=== PATIENT | male | born 1980 | race Caucasian/White ===

== ENCOUNTER → 2020-08-01 10:35 | Outpatient (CLI) | payer BC, SELFPAY ==
--- NOTE | 2020-08-01 10:47 | XR_ITS ---
PROCEDURE: XR HAND RT MIN 3V CLINICAL INDICATION: RT HAND PAIN,RT HAND SWELLING COMPARISON: No exams were available for comparison FINDINGS: No fracture or dislocation. No lytic or blastic change. There is normal mineralization. The joint spaces are well-preserved. No significant degenerative/arthritic changes. No erosive changes evident. Other findings:None. IMPRESSION: No acute findings. Dictated by: Yaw Monteiro MD 08/01/2020 11:47 Yaw Monteiro MD in [place] 08/01/2020 11:47
== END ==
PROVIDERS: PCP Family Medicine; Visit Provider Nurse Practitioner Family
DX: M79.641 Pain in right hand (principal); M79.89 Other specified soft tissue disorders
CPT/HCPCS: 73130

== ENCOUNTER → 2021-10-12 16:24 | Outpatient (CLI) | payer BC, SELFPAY | PROVIDERS: Visit Provider Nurse Practitioner | DX: U07.1 COVID-19 (principal) | CPT/HCPCS: C9803; U0003; U0005 ==

== ENCOUNTER → 2021-10-17 17:35 | Outpatient (CLI) | payer BC, SELFPAY | PROVIDERS: Visit Provider Nurse Practitioner | DX: U07.1 COVID-19 (principal) | CPT/HCPCS: C9803; U0003; U0005 ==

== ENCOUNTER 2021-10-22 16:51 | Emergency (ER) | payer BC, SELFPAY ==
[2021-10-22 17:40] VITALS: BP 156/86; PULSE 86; RESP 18; TEMP 37.4; O2SAT 98; BMI 39.0
--- NOTE | 2021-10-22 17:59 | HMH.EDUTC ---
[facility] [place] Clinical Impression: Encounter for laboratory testing for COVID-19 virus Disposition: Home, Self-Care Condition on Discharge: Good Instructions: DI for COVID-19 (Suspected or Confirmed ) Additional Instructions: *Monitor Temp, Over the counter Motrin or Tylenol as directed/as needed Tylenol every 4 hours and Motrin every 6 hours (as long as your family doctor has told you that you can take it) for fever or pain. and straight to ER if unable to lower temp less than 101.0 after medication given Follow up IMMEDIATELY for new or worsening symptoms or no Noticeable improvement over the next 48-72 hours. 911 for difficulty breathing or swallowing You were tested for today for COVID19 your test result should be back in the next 24-48 hours, you may check your results on the [facility] [employer] [facility] Portal if you have trouble logging on you may call [employer] support for assistance Referrals: Henry Drake, DO [Primary Care Provider] - As needed Time of Disposition: 18:01 Medical Decision Making - Darius Inquiry Pt receiving controlled substance: No Darius was queried for this patient: No Vital Signs: 10/22/21 17:40 Temperature 99.3 F Temperature Source Oral Pulse Rate [Left] 86 Respiratory Rate 18 Blood Pressure [Right Arm] 156/86 H Blood Pressure Mean [Right Arm] 109 02 Sat by Pulse Oximetry 98 Orders (Tests/Meds): ORDERS Category Date Time Status Covid-19 Nasal PCR ([facility]) Routine Lab 10/22/21 17:44 Received [facility] [place] HPI - General Stated complaint: covid test Time Seen by Provider: 10/22/21 17:59 Mode of Arrival: Ambulatory Source of Information: Patient Limitations: No Limitations Description of Symptoms (Recalled from Triage Doc. by RN): COVID TEST. TESTED POSITIVE 10 DAYS AGO AND FIVE DAYS AGO. HEENT Symptoms (Recalled from RN notes): No Resp Symptoms (Recalled from RN notes): No Skin Symptoms (Recalled from RN notes): No MS Symptoms (Recalled from RN notes): No Functional Status (Recalled from RN notes): WNL - History of Present Illness Provider Complaint: Encounter for COVID testing needs negative COVID test before he can return to work denies symptoms - Related Data Allergies Allergy/AdvReac Type Severity Reaction Status Date / Time Penicillins Allergy Verified 10/22/21 17:47 - Worker's Comp Is this a Worker's Comp case?: No [facility] History - Hepatitis A Screen Drug use history?: No High risk sexual behaviors?: No History of sexually transmitted infection?: No Currently employed?: No Childcare worker?: No Do you have indoor plumbing?: Yes Do you have electricity?: Yes Attestation statement:: This patient has been screened for Hepatitis A risk factors. I have reviewed the patient's past medical history: Yes ROS Obtained: Yes All systems reviewed & no additional complaints, Yes Systems reviewed as appropriate & no additional complaints - Constitutional Constitutional: Reports system reviewed and no additional complaints, except as docu, Denies body ache, Denies chills, Denies fever(s) - ENT Ears, Nose, Mouth, and Throat: Reports system reviewed and no additional complaints, except as docu - Cardiovascular Cardiovascular: Reports system reviewed and no additional complaints, except as docu - Respiratory Respiratory: Reports system reviewed and no additional complaints, except as docu - Gastrointestinal Gastrointestingal: Reports: system reviewed and no additional complaints, except as docu Physical Exam - General General appearance: alert, in no apparent distress - ENT ENT exam: Present: normal exam, normal oropharynx, mucous membranes moist, TM's normal bilaterally, normal external ear exam - Respiratory Respiratory exam: Present: normal lung sounds bilaterally. Absent: respiratory distress - Cardiovascular Cardiovascular exam: Present: regular rate, normal rhythm. Absent: JVD - Abdominal Exam Abdominal exam: Present: soft, normal bowel soun
[2021-10-22 18:09] VITALS: BP 156/86; PULSE 86; RESP 18; TEMP 37.4
== END 2021-10-22 18:11 | disposition home or self-care (01) ==
PROVIDERS: Emergency Provider Nurse Practitioner; PCP Family Medicine
DX: Z20.822 Contact with and (suspected) exposure to COVID-19 (principal)
CPT/HCPCS: 99202; C9803; G0463; U0003; U0005

== ENCOUNTER 2022-01-29 19:50 | Emergency (ER) | payer BC, SELFPAY ==
[2022-01-29 19:52] VITALS: BP 111/66; PULSE 76; RESP 16; TEMP 36.9; O2SAT 97; BMI 39.0
[2022-01-29 20:08] LABS: Microscopic, Urine URINE MICROSCOPIC (MICROSCOPIC)
--- NOTE | 2022-01-29 20:16 | HMH.EDGENADL ---
ED Disposition Clinical Impression: Kidney stone on right side Disposition: Home, Self-Care Condition on Discharge: Good Instructions: DI for Kidney Stones Additional Instructions: You have been evaluated for right-sided flank pain. You have been diagnosed with a kidney stone. The stone is 2 mm in size and at the junction of the ureter and the bladder. It has high likelihood of passing. Please take Max to dilate ureter, ibuprofen as needed for mild pain. [place] for severe pain. Zofran for nausea. Follow-up with your primary care doctor for symptom recheck. Follow-up with urology when available. Return to the emergency department at once for any new or worsening symptoms, pain, vomiting, other concerns. Prescriptions: Hydrocodone/Acetaminophen [Hydrocodone-Acetamin 5-325 mg] 1 tab PO Q6 PRN #6 tab PRN Reason: Severe Pain Transmission Status: Received by [facility]/pharmacy #[id number] Ibuprofen [Ibuprofen 600mg Tablet] 600 mg PO Q8 #30 tab Transmission Status: Pending to [id number] ondansetron HCL [Ondansetron 4mg tab*] 4 mg PO Q6 PRN #12 tab PRN Reason: Vomiting Transmission Status: Pending to [id number] Tamsulosin HCl 0.4 mg PO DAILY #5 cap Transmission Status: Pending to [id number] Referrals: Henry Drake DO [Primary Care Provider] - Benigno Galicia MD [Staff Physician] - Time of Disposition: 21:32 - Critical Care Critical Care Time: No Attestation: On 01/29/22, the high probability of a clinically significant, sudden or life threatening deterioration of the following system(s) required my full and direct attention, intervention and personal management. The time I documented below is in addition to time spent performing reported procedures but includes the following listed in this critical care notation. Medical Decision Making - Medical Records Medical records reviewed: Yes: I reviewed the patient's medical records. - Darius Inquiry Pt receiving controlled substance: No Vital Signs: 01/29/22 19:52 Temperature 98.4 F Temperature Source Oral Pulse Rate [Right Radial] 76 Respiratory Rate 16 Blood Pressure [Right Arm] 111/66 Blood Pressure Mean [Right Arm] 81 Blood Pressure Source [Right Arm] Automatic Cuff Blood Pressure Position [Right Arm] Sitting 02 Sat by Pulse Oximetry 97 Oxygen Delivery Method Room Air - Lab Data Lab Results 01/29/22 20:04: Urine Color Yellow, Urine Appearance Clear, Urine pH 6.0, Ur Specific [place] >= 1.030, Urine Protein Negative, Urine Glucose (UA) Negative, Urine Ketones Negative, Urine Blood 3+, Urine Nitrate Negative, Urine Bilirubin Negative, Urine Urobilinogen 0.2, Ur Leukocyte Esterase Negative, Urine RBC 10-20, Urine WBC Occasional, Ur Squamous Epith Cells Occasional, Urine Bacteria None 01/29/22 20:24: WBC 12.5 H, RBC 5.06, Hgb 15.7, Hct 47.4, MCV 93.7, MCH 31.1, MCHC 33.2, RDW 13.8, Plt Count 317, MPV 7.6, Neut % (Auto) 83.8 H, Lymph % (Auto) 10.1, [place] % (Auto) 4.0, Eos % (Auto) 1.3, Baso % (Auto) 0.8, Neut # (Auto) 10.4 H, Lymph # (Auto) 1.3, [place] # (Auto) 0.5, Eos # (Auto) 0.2, Baso # (Auto) 0.1 01/29/22 20:24: Sodium 138, Potassium 3.7, Chloride 102, Carbon Dioxide 29, Anion Gap 10.7, BUN 15, Creatinine 1.00, Estimated Creat Clear 171, Estimated GFR 82, Est GFR ( Amer) 99, Glucose 122 H, Calcium 9.4, Total Bilirubin 0.7, AST 41, ALT 40, Alkaline Phosphatase 105, Total Protein 7.1, Albumin 4.1, Globulin 3.0, Albumin/Globulin Ratio 1.4, Lipase 83 Result diagrams: 01/29/22 20:24 01/29/22 20:24 Orders (Tests/Meds): ED MEDICATIONS Discontinued Medications Generic Name Dose Route Start Last Admin Trade Name Freq PRN Reason Stop Dose Admin Iopamidol 75 ml 01/29/22 20:52 01/29/22 20:54 Iopamidol-370 (76%);100ml Bottle IV 01/29/22 20:53 75 ml ONCE ONE Administration Ketorolac Tromethamine 30 mg 01/29/22 20:04 Ketorolac 30mg/Ml Vial IV 01/29/22 20:05 ONCE ONE Sodium Chloride 10 ml 01/29/22 20
[2022-01-29 20:19] LABS: Appearance,Urine CLEAR (Clear); Bilirubin,Urine Negative (Negative); Blood, Urine 3+ (Negative); Color,Urine YELLOW (Yellow); Glucose,Urine (UA) Negative (Negative); Ketones,Urine Negative (Negative); Leukocyte Esterase,Urine Negative (Negative); Nitrate,Urine Negative (Negative); Protein,Urine Negative (Negative); Specific Gravity, Urine >= 1.030 (1.005-1.030); Urobilinogen,Urine 0.2 EU/dl (0.2)
[2022-01-29 20:27] LABS: Squamous Epithelial Cell,Urine Occasional #/hpf (0-5); WBC,Urine Occasional #/hpf (0-3)
--- NOTE | 2022-01-29 20:28 | PC.NURSE ---
PT STATES HE WOULD LIKE TO WAIT ON PAIN MEDS AT THIS TIME. PT AWARE IF HE CHANGES HIS MIND - MEDICATIONS ARE AVAILABLE. BLANKET PROVIDED. FAMILY AT BEDSIDE.
--- NOTE | 2022-01-29 20:38 | CT_ITS ---
PROCEDURE INFORMATION: Exam: CT Abdomen And Pelvis With Contrast Exam date and time: 01/29/2022 8:44 PM Age: 41 years old Clinical indication: Abdominal pain; Flank; Right; Additional info: Flank pain, trauma TECHNIQUE: Imaging protocol: Computed tomography of the abdomen and pelvis with contrast. Radiation optimization: All CT scans at this facility use at least one of these dose optimization techniques: automated exposure control; mA and/or kV adjustment per patient size (includes targeted exams where dose is matched to clinical indication); or iterative reconstruction. Contrast material: ISOVUE; Contrast volume: 75 ml; Contrast route: IV; COMPARISON: No relevant prior studies available. FINDINGS: Lungs: Mild scarring and atelectasis in the lower lungs. Heart: Coronary artery calcifications. Liver: Hepatic steatosis. Gallbladder and bile ducts: Normal. No calcified stones. No ductal dilation. Pancreas: Normal. No ductal dilation. Spleen: Normal. No splenomegaly. Adrenal glands: Normal. No mass. Kidneys and ureters: Mild right hydronephrosis secondary to a 2 mm calculus at the UVJ. Nonobstructing right renal calculus. Stomach and bowel: Unremarkable. No obstruction. No mucosal thickening. Appendix: Unremarkable appendix. Intraperitoneal space: Unremarkable. No free air. No significant fluid collection. Vasculature: Unremarkable. No abdominal aortic aneurysm. Lymph nodes: Unremarkable. No enlarged lymph nodes. Urinary bladder: Unremarkable as visualized. Reproductive: Unremarkable as visualized. Bones/joints: Unremarkable. No acute fracture. Soft tissues: Tiny fat containing umbilical hernia. Other findings: Stigmata of old granulomatous disease. IMPRESSION: 1. Mild right hydronephrosis secondary to a 2 mm calculus at the UVJ. 2. Coronary artery calcifications. 3. Hepatic steatosis. 4. Nonobstructing right renal calculus.
[2022-01-29 20:48] LABS: Chloride 102 mmol/L (98-107); Potassium 3.7 mmoL/L (3.5-5.1); Sodium 138 mmol/L (136-145)
[2022-01-29 20:50] LABS: Blood Urea Nitrogen 15 mg/dl (9-20); Creatinine Clearance Estimated 171 mL/min (50-200); Estimated Glomerular Filt Rate 82 ml/min (>60); GFR (African American) 99 ML/MIN (>60)
[2022-01-29 20:51] LABS: Alanine Aminotransferase 40 U/L (12-78); Albumin Level 4.1 g/dl (3.5-5.0); Albumin/Globulin Ratio 1.4 (1.1-1.8); Alkaline Phosphatase 105 U/L (38-126); Anion Gap 10.7 mEq/L (5-15); Aspartate Amino Transferase 41 U/L (17-59); Bilirubin,Total 0.7 mg/dl (0.2-1.3); Calcium 9.4 mg/dl (8.4-10.2); Carbon Dioxide 29 mmol/L (22.0-30.0); Glucose 122 mg/dl (74-100); Lipase 83 U/L (23-300); Total Protein,Serum 7.1 g/dl (6.3-8.2)
[2022-01-29 20:56] LABS: Basophils # 0.1 K/mm3 (0-0.2); Basophils % 0.8 % (0.1-2.0); Eosinophils # 0.2 K/mm3 (0.0-0.4); Eosinophils % 1.3 % (0.1-12.0); Hematocrit 47.4 % (42.0-52.0); Hemoglobin 15.7 g/dL (14.1-18.0); Lymphocytes # 1.3 K/mm3 (0.7-4.5); Lymphocytes % 10.1 % (10-50); Mean Corpuscular HGB Conc 33.2 g/dL (31.8-35.4); Mean Corpuscular Hemoglobin 31.1 pg (27.0-31.2); Mean Corpuscular Volume 93.7 fl (80-94); Mean Platelet Volume 7.6 fl (7.4-10.4); Monocytes # 0.5 K/mm3 (0.1-1.0); Neutrophils # 10.4 K/mm3 (1.8-7.8); Neutrophils % 83.8 % (37.0-80.0); Platelet Count 317 K/mm3 (142-424); Red Blood Count 5.06 M/mm3 (4.60-6.20); Red Cell Distribution Width 13.8 % (11.5-17.5); White Blood Count 12.5 K/mm3 (4.8-10.8)
[2022-01-29 21:38] VITALS: BP 111/68; PULSE 78; RESP 19; TEMP 36.8; O2SAT 96
== END 2022-01-29 21:48 | disposition home or self-care (01) ==
PROVIDERS: Emergency Medicine; Emergency Provider Emergency Medicine; PCP Family Medicine
DX: N20.0 Calculus of kidney (principal); I10 Essential (primary) hypertension; Z88.0 Allergy status to penicillin
CPT/HCPCS: 74177; 80053; 81001; 83690; 85025; 96374; 99284; Q9967

== ENCOUNTER 2025-03-21 12:40 | Emergency (ER) | payer BC, SELFPAY ==
[2025-03-21] VITALS (7 sets, daily range): BP systolic 113–128; BP diastolic 67–83; PULSE 62–73; RESP 17–18; TEMP 36.6; O2SAT 94–96; BMI 39.0
--- NOTE | 2025-03-21 12:49 | CT_ITS ---
PROCEDURE INFORMATION: Exam: CT Abdomen And Pelvis Without Contrast Exam date and time: 03/21/2025 1:16 PM Age: 44 years old Clinical indication: Abdominal pain; Additional info: Left sided flank / groin pain TECHNIQUE: Imaging protocol: Computed tomography of the abdomen and pelvis without contrast. Radiation optimization: All CT scans at this facility use at least one of these dose optimization techniques: automated exposure control; mA and/or kV adjustment per patient size (includes targeted exams where dose is matched to clinical indication); or iterative reconstruction. COMPARISON: CT ABDOMEN PELVIS W CON 01/29/2022 8:44 PM FINDINGS: Mediastinal space: Mediastinal calcifications consistent with prior granulomatous disease Liver: Normal. No mass. Gallbladder and biliary ducts: Normal. No calcified stones. No ductal dilation. Pancreas: Normal. No ductal dilation. Spleen: Normal. No splenomegaly. Adrenal glands: Normal. No mass. Kidneys and ureters: 2 mm distal LEFT ureteral calculus causes mild dilatation of LEFT collecting system and LEFT ureter. (series 3, image 122; series 1001, image 47) The LEFT kidney is edematous and there is LEFT perirenal stranding. Stomach and bowel: Unremarkable. No obstruction. No mucosal thickening. Appendix: No evidence of appendicitis. Intraperitoneal space: Unremarkable. No free air. No significant fluid collection. Vasculature: Unremarkable. No abdominal aortic aneurysm. Lymph nodes: Unremarkable. No enlarged lymph nodes. Urinary bladder: Unremarkable as visualized. Reproductive: Unremarkable as visualized. Bones/joints: Unremarkable. No acute fracture. Soft tissues: Unremarkable. IMPRESSION: 2 mm distal LEFT ureteral calculus causes mild dilatation of LEFT collecting system and LEFT ureter. (series 3, image 122; series 1001, image 47) The LEFT kidney is edematous and there is LEFT perirenal stranding.
--- OUTSIDE RECORDS SUMMARY | 2025-03-21 12:53 | XMS_ITS | Clinical Summary ---
Author Organization 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 Name Role Phone Unavailable Primary Care Provider Unavailabl e Allergies Active Allergy Reactions Criticality Noted Date Comments Penicillins Hives Medium 12/13/2016 Surgical History Surgery Date Site/Laterality Comments ORTHOPEDIC SURGERY Medical History Medical History Date Comments Kidney stones Essential (primary) hypertension Social History Tobacco Use Types Packs/Day Years Used Date Smoking Tobacco: Never Smokeless Tobacco: Never Tobacco Cessation:Counseling Given: Not Answered Alcohol Use Standard Drinks/Week Comments Never 0 (1 standard drink = 0.6 oz pur e alcohol) Sex and Gender Information Value Date Recorded Sex Assigned at Not on file Legal Sex Male 8:15 PM EDT Gender Identity Not on file Sexual Orientation Not on file Obstetrics History Last Filed Vital Signs Vital Sign Reading Time Taken Comments Blood Pressure 156/90 07/20/2024 8:58 AM EDT Pulse 87 07/20/2024 8:55 AM EDT Temperature 36.7 C (98 F) 07/20/2024 8:58 AM EDT Respiratory Rate 20 07/20/2024 8:55 AM EDT Oxygen Saturation 96% 07/20/2024 8:55 AM EDT Inhaled Oxygen Concentration - - Weight 127 kg (280 lb) 07/20/2024 8:58 AM EDT Height 180.3 cm (5' 11 ) 07/20/2024 8:58 AM EDT Body Mass Index 39.05 07/20/2024 8:58 AM EDT Plan of Treatment Health Maintenance Due Date Last Done Comments Annual Wellness Exam 1981 Hepatitis B Vaccine (1 of 3 - 19+ 3-dose series) 1997 Cologuard 2023 Colon Cancer Screening 2023 Colonoscopy 2023 FIT 2023 Sigmoidoscopy 2023 Virtual Colonography 2023 COVID-19 Vaccine ( season) 2024 02/10/2021, 01/13/2021 Influenza Vaccine (Season Ended) 2025 08/30/2023, 07/27/2022, 07/11/2021, Additional history exists DTaP/TDaP/Td (2 - Td or Tdap) 10/31/2025 10/31/2015 Meningococcal B Vaccine Aged Out No l onger eligible based on patient's age to complete this topic Pneumococcal Vaccine 0-49 Aged Out No longer eligible based on patient's age to complete this topic Insurance
--- OUTSIDE RECORDS SUMMARY | 2025-03-21 12:54 | XMS_ITS | Data Portability ---
Author Organization [facility] ISRAEL Waggoner [place] [facility] Address [address] [facility] [place] [address] Care Team Providers Care Pharmacist Name Role Phone BRE NEELY Manager Instrumentation NAN DRAKE Primary Care Provider LETTY VELAZQUEZ Arm Rest Builder Assessment No assessment recorded. Plan of Treatment Reminders Order Date Submit Date Provider Last Modified By Organization Details Last Modified Time Details Appointments PHYS ICAL EXAM 2024 09:30A Desi WREN DO Not available Not available Not available Lab lipi elana mckeon 2023 024 [facility], [address] [place] [address], [address], 09/04/2024 14:33:18 CMP, seru desi or plas ma 2023 024 [facility], [address] [place] [address], [address], 09/04/2024 14:33:16 CBC w/ auto diff 2023 024 [facility], [address] [place] [address], [address], 09/04/2024 14:03:52 glyc ohem azalea mchugh bloo d 2023 024 [facility], [address] [place] [address] [place], [address], 09/04/2024 13:59:02 Referral gabino paula resendiz rral 2023 024 rdreuxargret bill [facility], [address] [facility], [place], [address], 09/07/2024 16:21:07 Procedures None archie rded . Surgeries None archie rded . Imaging None archie rded . Medication Orders amlo dipi ne 10 mg tabl et 2023 024 [id number], [facility] [place], [address], 03/02/2024 09:31:39 Patient TargetsNo targets recorded. Patient Instructions Encounter Date Encounter Id Patient Instructions Last Modified By Organization Details Last Modified Time 03/02/2024 [id number] Return to clinic in 3 months for re-check. Not available 03/02/2024 09:31:46 06/18/2024 [id number] Return to clinic in 3 months for physical. Not available 06/18/2024 11:18:58 09/04/2024 [id number] Return to clinic in 6 months for re-check. Not available 09/04/2024 11:36:27 Reason for Referral Security Program Manager Referral for Screening for malignant neoplasm of colon 3:15PM Referring Physician: Nan Drake, Family Medicine, Encounter Date: 09/04/2024 Results Created Date Observation Date Name Description Value Unit Range Abnormal Flag Note LastModifiedBy Organization Detail LastModifiedTime 09/04/2009/04/2024 GLYCO HEMOG LOBIN A1C glyco HGB A1C 5.6 % 0.0-5. 6 normal Not Available [facility] [address] [place], [address], 09/04/2024 13:59:02 09/04/20 24 09/04/2024 GLYCO HEMOG LOBIN A1C estimated avg. glucose 114 mg/dL _(stewart c) normal A1c value s betwe en 5.7% to 6.4% indic ate predi abete s. Resul ts 6.5% or great er is diagn ostic of diabe mg. Ameri can Diabe mg Assoc iatio n (diab etes. org) Not Available [facility] [address] [place] [address], [address], 09/04/2024 13:59:02 09/04/20 24 09/04/2024 COMPL ETE BLOOD COUNT white blood cells 9.0 10*3/ uL 3.8-10 .8 normal Not Available [facility] [address] [place] [address], [address], 09/04/2024 14:03:52 09/04/20 24 09/04/2024 COMPL ETE BLOOD COUNT red blood cells 5.14 10*6/ uL 4.20-5 .80 normal Not Available [facility] [address] [place] [address], [address], 09/04/2024 14:03:52 09/04/20 24 09/04/2024 COMPL ETE BLOOD COUNT hemoglobin 15.2 g/dL 14.0-1 8.0 normal Not Available [facility] [address] [place] [address], [address], 09/04/2024 14:03:52 09/04/20 24 09/04/2024 COMPL ETE BLOOD COUNT hematocrit 46.1 % 40.0-5 2.0 normal Not Available [facility] [address] [place] [address], [address], 09/04/2024 14:03:52 09/04/20 24 09/04/2024 COMPL ETE BLOOD COUNT MCV 90 fL 80-100 normal Not Available [facility] [address] [place] [address], [address], 09/04/2024 14:03:52 09/04/20 24 09/04/2024 COMPL ETE BLOOD COUNT MCH 30 pg 26-35 normal Not Available [facility] [address] [place] [address], [address], 09/04/2024 14:03:52 09/04/20 24 09/04/2024 COMPL ETE BLOOD COUNT MCHC 33 g/dL 32-36 normal Not Available [facility] [address] [place] [address], [address], 09/04/2024 14:03:52 09/04/20 24 09/04/2024 COMPL ETE BLOOD COUNT RDW 13.1 % 11.0-1 5.0 normal Not Available [facility] [address] [place] [address], [address], 09/04/2024 14:03:52 09/04/20 24 09/04/2024 COMPL ETE BLOOD COUNT MPV 7.7 fL 6.2-10 .5 normal Not Available [facility] [address] [place] [address], [address], 09/04/2024 14:03:52 09/04/20 24 09/04/2024 COMPL ETE BLOOD COUNT platelet count 302 10*3/ uL 150-40 0 normal Not Available [facility] [address] [place] [address], [address], 09/04/2024 14:03:52 09/04/20 24 09/04/2024 COMPL ETE BLOOD COUNT neutrophil,a bsolute 5.1 10*3/ uL 1.6-8. 4 normal Not Available [facility] [address] [place] [address], [address], 09/04/2024 14:03:52 09/04/20 24 09/04/2024 COMPL ETE BLOOD COUNT lymphocyte,a bsolute 2.6 10*3/ uL 0.4-5. 1 normal Not Available [facility] [address] [place] [address], [address], 09/04/2024 14:03:52 09/04/20 24 09/04/2024 COMPL ETE BLOOD COUNT monocyte,abs olute 0.7 10*3/ uL 0.0-1. 2 normal Not Available [facility] [address] [place] [address], [address], 09/04/2024 14:03:52 09/04/20 24 09/04/2024 COMPL ETE BLOOD COUNT eosinophil,a bsolute 0.4 10*3/ uL 0.0-0. 8 normal Not Available [facility] [address] [place] [address], [address], 09/04/2024 14:03:52 09/04/20 24 09/04/2024 COMPL ETE BLOOD COUNT basophil,abs olute 0.1 10*3/ uL 0.0-0. 3 normal Not Available [facility] [address] [place] [address], [address], 09/04/2024 14:03:52 09/04/20 24 09/04/2024 COMPL ETE BLOOD COUNT % neutrophils 57.0 % 42.0-7 8.0 normal Not Available [facility] [address] [place] [address], [address], 09/04/2024 14:03:52 09/04/20 24 09/04/2024 COMPL ETE BLOOD COUNT % lymphocytes 29.6 % 11.0-4 7.0 normal Not Available [facility] [address] [place] [address], [address], 09/04/2024 14:03:52 09/04/20 24 09/04/2024 COMPL ETE BLOOD COUNT % monocytes 8.0 % 0.0-11 .0 normal Not Available [facility] [address] [place] [address], [address], 09/04/2024 14:03:52 09/04/20 24 09/04/2024 COMPL ETE BLOOD COUNT % eosinophils 4.7 % 0.0-7. 0 normal Not Available [facility] [address] [place] [address], [address], 09/04/2024 14:03:52 09/04/20 24 09/04/2024 COMPL ETE BLOOD COUNT % basophils 0.7 % 0.0-3. 0 normal Not Available [facility] [address] [place] [address], [address], 09/04/2024 14:03:52 09/04/20 24 09/04/2024 COMPL ETE BLOOD COUNT nucleated red cells 0.2 % 0.0-0. 9 normal Not Available [facility] [address] [place] [address], [address], 09/04/2024 14:03:52 09/04/20 24 09/04/2024 COMPL ETE BLOOD COUNT nucleated RBCs, absolute 0.02 10*3/ uL not estab. normal Not Available [facility] [address] [place] [address], [address], 09/04/2024 14:03:52 09/04/20 24 09/04/2024 COMP. METAB OLIC PANEL glucose 88 mg/dL 74-100 normal Not Available [facility] [address] [place] [address], [address], 09/04/2024 14:33:16 09/04/20 24 09/04/2024 COMP. METAB OLIC PANEL blood urea nitrogen 12 mg/dL 6-20 normal Not Available [facility] [address] [place] [address], [address], 09/04/2024 14:33:16 09/04/20 24 09/04/2024 COMP. METAB OLIC PANEL creatinine 0.94 mg/dL 0.70-1 .28 normal Not Available [facility] [address] [place] [address], [address], 09/04/2024 14:33:16 09/04/20 24 09/04/2024 COMP. METAB OLIC PANEL BUN/creatini ne ratio 13 (calc ) 10-20 normal Not Available [facility] [address] [place] [address], [address], 09/04/2024 14:33:16 09/04/20 24 09/04/2024 COMP. METAB OLIC PANEL sodium 140 mmol/ L 136-14 5 normal Not Available [facility] [address] [place] [address], [address], 09/04/2024 14:33:16 09/04/20 24 09/04/2024 COMP. METAB OLIC PANEL potassium 3.9 mmol/ L 3.4-5. 0 normal Not Available [facility] [address] [place] [address], [address], 09/04/2024 14:33:16 09/04/20 24 09/04/2024 COMP. METAB OLIC PANEL chloride 103 mmol/ L 98-107 normal Not Available [facility] [address] [place] [address], [address], 09/04/2024 14:33:16 09/04/20 24 09/04/2024 COMP. METAB OLIC PANEL carbon dioxide 25 mmol/ L 22-31 normal Not Available [facility] [address] [place] [address], [address], 09/04/2024 14:33:16 09/04/20 24 09/04/2024 COMP. METAB OLIC PANEL anion gap 12 (calc ) 7-25 normal Not Available [facility] [address] [place] [address], [address], 09/04/2024 14:33:16 09/04/20 24 09/04/2024 COMP. METAB OLIC PANEL calcium 9.2 mg/dL 8.6-10 .2 normal Not Available [facility] [address] [place] [address], [address], 09/04/2024 14:33:16 09/04/20 24 09/04/2024 COMP. METAB OLIC PANEL total protein 7.4 g/dL 6.4-8. 3 normal Not Available [facility] [address] [place] [address], [address], 09/04/2024 14:33:16 09/04/20 24 09/04/2024 COMP. METAB OLIC PANEL albumin 4.2 g/dL 3.5-5. 2 normal Not Available [facility] [address] [place] [address], [address], 09/04/2024 14:33:16 09/04/20 24 09/04/2024 COMP. METAB OLIC PANEL globulin 3.2 1.5-4. 5 normal Not Available [facility] [address] [place] [address], [address], 09/04/2024 14:33:16 09/04/20 24 09/04/2024 COMP. METAB OLIC PANEL albumin/glob ulin ratio 1.3 (calc ) 1.1-2. 5 normal Not Available [facility] [address] [place] [address], [address], 09/04/2024 14:33:16 09/04/20 24 09/04/2024 COMP. METAB OLIC PANEL bilirubin, total 0.4 mg/dL 0.1-1. 2 normal Not Available [facility] [address] [place] [address], [address], 09/04/2024 14:33:16 09/04/20 24 09/04/2024 COMP. METAB OLIC PANEL alkaline phosphatase 123 U/L 40-129 normal Not Available [facility] [address] [place] [address], [address], 09/04/2024 14:33:16 09/04/20 24 09/04/2024 COMP. METAB OLIC PANEL AST 20 U/L 0-40 normal Not Available [facility] [address] [place] [address], [address], 09/04/2024 14:33:16 09/04/20 24 09/04/2024 COMP. METAB OLIC PANEL ALT 24 U/L 0-41 normal Not Available [facility] [address] [place] [address], [address], 09/04/2024 14:33:16 09/04/20 24 09/04/2024 COMP. METAB OLIC PANEL GFR 101 >= 60 normal NOT E New calcu latio n for GFR (CKD- EPI 2020) is formu lated witho ut race adjus tment facto rs at the recom menda tion of the [employer] ation and Amroula Wilde ty of Nephr ology . This calcu latio n has not been valid ated in pregn ant women . For pedia tric patie nts refer to https ://duglas gann.dejuan rg/pr ofess ional s/KDO QI/gf r_cal culat orPed Not Available [facility] [address] [place] [address], [address], 09/04/2024 14:33:16 09/04/20 24 09/04/2024 LIPID PROFI LE HDL cholesterol 62 mg/dL 40-242 normal Not Available [facility] [address] [place] [address], [address], 09/04/2024 14:33:18 09/04/20 24 09/04/2024 LIPID PROFI LE triglyceride s 125 mg/dL 0-149 normal TRIGL YCERI DE RANGE S NEMO L: < 150 BORDE RLINE HIGH: 150 - 199 HIGH: 200 - 499 VERY HIGH: > OR = 500 Not Available [facility] [address] [place] [address], [address], 09/04/2024 14:33:18 09/04/20 24 09/04/2024 LIPID PROFI LE cholesterol 257 mg/dL 0-199 high CHRISTINA STERO L (TOTA L) RANGE S DAYDAY ABLE: < 200 BORDE RLINE : 200 - 239 HIGHE R RISK: > 239 Not Available [facility] [address] [place] [address], [address], 09/04/2024 14:33:18 09/04/20 24 09/04/2024 LIPID PROFI LE LDL cholesterol 170 mg/dL _(stewart c) 0-99 high LDL CHRISTINA STERO L RANGE S OPTIM AL: < 100 NEAR/ ABOVE OPTIM AL: 100 - 129 BORDE RLINE HIGH: 130 - 159 HIGH: 160 - 189 VERY HIGH: > OR = 190 Not Available [facility] [address] [place], [address], 09/04/2024 14:33:18 Result Notes None recorded. Problems Name Problem SNOMED Code Status Onset Date Resolution Date Notes Provider Name and Address Organization Details Recorded Time Hypertens lu disorder 02694412 Completed 201409/08/2019 From Automated Load;Prov ider: Jorge Long;St atus: Active [facility], [address], [address] , [facility] 9 09:28:10 Herpes zoster 0337892 Completed 201509/08/2019 From Automated Load;Prov ider: Jorge Long;St atus: Active [facility]AN [facility], [address], [address] , [facility] [place] 9 09:28:12 Varicella -zoster virus infection Completed 201509/08/2019 From Automated Load;Prov ider: Bre Neely;S tatus: Active [facility]AN [facility], [address], [address], [facility] [place] 9 09:28:18 Hyperlipi demia 36077293 Active 2016 Malou Villarreal [facility] 7 11:49:48 Adult health examinati on Active [address] [facility]O, DO [address] [place] [address], [address], [facility] 9 09:28:02 Benign essential hypertens ion 5494611 [facility] [address] [place], [address], [facility] 9 09:28:07 Obstructi ve sleep apnea syndrome 78126888 Active 2021 NANSHANON WREN, DO [address] [place], [address], [facility] [place] 2 08:45:32 Notes:: Depression Screening* Date:04/19/2016 Problem Notes None recorded. Procedures Surgical History Date Name Laterality Status Provider Name and Address Organization Details Recorded Time 10/04/2023 [place] [address] [place] [address], [address], [facility] 10/05/2023 12:54:32 Imaging Results None recorded. Procedure Notes None recorded. Medical Equipment None Reported. Allergies Allergen ID Allergen Name Allergen Category Reaction Reaction Severity Criticality Documentation Date Start Date Code Code System Note Provider Name and Address Organization Details Recorded Time 901389 Product containin g penicilli n (product) medicatio n hives Not available Not available 08/24/20162008 00709 8001 SNOMED React ion: HIVES ; Comme nt: Creat ed By: Lon mcclellan Date: 09/28 2:32: 35 PM; Not Available [facility] 6 08:37:13 Medications Name Sig Start Date Stop Date Status Note LastModified by Organization Details LastModified Time doxycycline hyclate 100 mg capsule Take 1 capsule twice a day by oral route for 7 days. 03/05 completed Not Available Not Available Not Available lisinopril 20 mg tablet TAKE 1 TABLET BY MOUTH EVERY DAY active Not Available Not Available No t Available Zithromax Z-Kurtis 250 mg tablet TAKE 2 TABLETS (500 MG) BY ORAL ROUTE ONCE DAILY FOR 1 DAY THEN 1 TABLET (250 MG) BY ORAL ROUTE ONCE DAILY FOR 4 DAYS 11/15 completed Not Available Not Available Not Available amlodipine 5 mg tablet TAKE 1 TABLET BY MOUTH EVERY DAY 2022 active Not Available Not Available Not Avai lable Tamiflu 75 mg capsule Take 1 capsule twice a day by oral route for 5 days. 10/21 completed Not Available Not Available Not Available amlodipine 10 mg tablet TAKE 1 TABLET BY MOUTH EVERY DAY 2024 active Not Available Not Available Not Avai lable lisinopril 10 mg tablet TAKE 1 TABLET BY MOUTH EVERY DAY active Not Available Not Available No t Available lisinopril 40 mg tablet TAKE 1 TABLET BY MOUTH EVERY DAY 2024 active Not Available Not Available Not Avai lable cefdinir 300 mg capsule Take 1 capsule every 12 hours by oral route for 10 days. 11/22 completed Not Available Not Available Not Available TobraDex 0.3 %-0.1 % eye drops,suspe nsion one drop left eye once a day 07/08 completed Not Available Not Available Not Available Suprep Bowel Prep Kit 17.5 gram-3.13 gram-1.6 gram oral solution TAKE DIRECTED 03/19 completed Not Available Not Available Not Available Plenvu 140 gram-9 gram-5.2 gram powder packs Take as directed. UNIVERSAL COPAY CARDBIN: [id number] PCN: [id number] GROUP: [id number] ID: [id number] 03/19 completed Not Available Not Available Not Available Vitals Date Recorded Body height Body mass index (BMI) Body weight Body temperature Heart rate Oxygen saturation Oxygen saturation in Arterial blood by Pulse oximetry Respiratory rate Systolic blood pressure Diastolic blood pressure Systolic blood pressure Diastolic blood pressure Provider Name and Address Organization Details Last Updated DateTime 4 180.34 cm 40.3 kg/m2 258811. 19 g 97.3 [degF] 64 /min 97 % 97 % 16 /min 135 mm[Hg] 94 mm[Hg] 138 mm[Hg] 92 mm[Hg] [facility] 4 09:26:48 Date Recorded Body height Body mass index (BMI) Body weight Body temperature Heart rate Oxygen saturation Oxygen saturation in Arterial blood by Pulse oximetry Respiratory rate Systolic blood pressure Diastolic blood pressure Provider Name and Address Organization Details Last Updated DateTime 5 180.34 cm 39.1 kg/m2 275968. 66 g 97.6 [degF] 77 /min 99 % 99 % 16 /min 120 mm[Hg] 84 mm[Hg] [facility] 5 10:33:17 Date Recorded Body height Body mass index (BMI) Body weight Body temperature Heart rate Oxygen saturation Oxygen saturation in Arterial blood by Pulse oximetry Respiratory rate Systolic blood pressure Diastolic blood pressure Provider Name and Address Organization Details Last Updated DateTime 4 180.34 cm 40.4 kg/m2 442158. 29 g 97.3 [degF] 72 /min 97 % 97 % 16 /min 129 mm[Hg] 83 mm[Hg] [facility] 4 11:06:41 Date Recorded Body height Body mass index (BMI) Body weight Body temperature Heart rate Oxygen saturation Oxygen saturation in Arterial blood by Pulse oximetry Respiratory rate Systolic blood pressure Diastolic blood pressure Systolic blood pressure Diastolic blood pressure Provider Name and Address Organization Details Last Updated DateTime 4 180.34 cm 40.4 kg/m2 379091. 79 g 97.2 [degF] 73 /min 97 % 97 % 16 /min 143 mm[Hg] 104 mm[Hg] 123 mm[Hg] 86 mm[Hg] [facility] 4 11:32:58 Social History Question Answer Notes LastModified by Organizat ion Details LastModified Time Tobacco Smoking Status [facility] 15:58:37 How Much Tobacco Do You Chew? None Information not available 11/27/2018 Are You Deaf Or Do You Have Serious Difficulty Hearing? No Information not available 06/16/2021 Which Illicit Or Recreational Drugs Have You Used? None Information not available 05/09/2017 What Is The Highest Grade Or Level Of School You Have Completed Or The Highest Degree You Have Received? [id number] [email or web address] Information not available 06/18/2024 Hard Of Hearing Or Deaf In One Or Both Ears? No Information not available 07/08/2020 Legally Blind In One Or Both Eyes? No Information no t available 07/08/2020 Live Alone Or With Others? With Others Information not available 07/08/2020 Marital Status Informatio n not available 10/31/2016 What Was The Date Of Your Most Recent Tobacco Screening? 03/03/2024 Information not available 03/02/2024 How Many Children Do You Have? 1 [email or web address] Information not available 06/18/2024 What Is Your Relationship Status? Information not available 06/16/2021 Do You Use Your Seat Belt Or Car Seat Routinely? Yes Information not available 06/16/2021 Are You Sexually Active? Yes Information not available 07/08/2020 How Much Tobacco Do You Smoke? No Information not available 09/08/2019 Has Tobacco Cessation Counseling Been Provided? No Information not available 06/16/2021 On What Date Was Tobacco Cessation Counseling Provided? 08/31/2020 Information not available 08/31/2020 How Many Years Have You Smoked Tobacco? 0 Information not available 09/08/2019 Have You Recently Traveled Abroad? Yes Information not available 06/16/2021 Sex: Male Functional Status Question Answer Note LastModified by Organizat ion Details LastModified Time Do you use any illicit or recreational drugs? No Information not available 06/16/2021 Do you or have you ever used any other forms of tobacco or nicotine? No Information not available 06/16/2021 What is your level of alcohol consumption? None Information not available 10/31/2016 Do you or have you ever used smokeless tobacco? Never used smokeless tobacco Information not available 09/08/2019 Are you currently employed? Yes [email or web address] Information not available 10/04/2023 Are you able to care for yourself? 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 Never used electronic cigarettes Information not available 09/08/2019 Mental Status None recorded. Family History Relationship Description Onset Age of this Age Resolved Age Notes LastModified by Organization Details LastModified Time Brother Hypertensive disorder Not available 2016 15:58:07 Mother Hypertensive disorder Not available 2016 15:58:07 Mother Cataract [email or web address] Not available 02/19/2020 16:20:39 Medical History Condition Response Coronary Artery Disease N Gout N Other N Atrial Fibrillation N Kidney Stones Y Hyperthyroidism N Blood Transfusion N COPD N Depression N Anxiety Disorder N Muscle, Joint, or Bone Problems N Vision or Eye Problems N Arthritis N Polyps N Infertility N Blood Clot N Cancer N Varicosities N Stroke N Headaches N Fibromyalgia N Kidney Disease N Heart Problems N Ear or Hearing Problems N Hospitalizations N Eating Disorder N Skin Problems N Constipation N Tuberculosis N Asthma N GERD/Reflux N Hepatitis N Pulmonary Embolism N Chronic Ear Infections N Chicken Pox N Thrombophilias N Glasses/Contacts Y Lung Disease N Hypothyroidism N Breast Problem N Difficulty Swallowing N Meniere's disease N Endometriosis N Bladder or Kidney Problems Y High Cholesterol N Liver Disease N Allergies/Hayfever Y Parkinson's Disease N Alzheimer's N Thyroid Problems N GI Problems N Anemia N Mental Illness N Diabetes N Ovarian Cancer N Seizures/Epilepsy N Eczema N Diverticulitis N Reflux/GERD N Sleep Apnea N Heart Disease N Pre-Eclampsia N Hypertension Y Osteoporosis N Immunizations Vaccine Type Date Status Note Provider Nam e and Address Organization Details Recorded Time Influenza, split virus, quadrivalent, PF 9 completed Not Available [facility] 10/17/2019 02:52:55 Hep A, adult 9 completed Not Available [facility] 10/17/2019 02:54:11 Hep A, adult 8 completed Not Available [facility] 10/04/2023 14:44:24 Influenza, split virus, quadrivalent, preservative 8 completed Not Available [facility] 10/04/2023 14:44:24 Tdap 6 completed Priscila Yuen [facility] 10/31/2016 15:57:34 Influenza, split virus, quadrivalent, PF 2 completed [facility] 07/27/2022 08:55:05 COVID-19, mRNA, LNP-S, PF, 30 mcg/0.3 mL dose 1 completed [facility] 07/27/2022 08:19:59 Influenza, split virus, quadrivalent, PF 3 completed NAN Misty SILVA, [address] [place], [address], [facility] 08/30/2023 13:43:43 Influenza, split virus, trivalent, preservative 5 completed [facility] 07/27/2022 08:19:59 COVID-19, mRNA, LNP-S, PF, 30 mcg/0.3 mL dose 1 completed [facility] 07/27/2022 08:19:59 Influenza, split virus, quadrivalent, PF 0 completed [facility] 07/27/2022 08:19:59 Influenza, split virus, quadrivalent, PF 7 completed [facility] 07/27/2022 08:20:00 Influenza, split virus, quadrivalent, PF 6 completed [facility] 07/27/2022 08:20:00 Influenza, split virus, trivalent, preservative 1 completed [facility] 07/27/2022 08:20:00 Past Encounters Encounter ID Performer Location Encounter Start Date Encounter Closed Date Diagnosis/Indication Diagnosis SNOMED-CT Code Diagnosis ICD10 Code Diagnosis Note [id number] JORGE LONG MD [address] [address] 11/01/2016 09:36:09 11/01/2016 10:39:40 Hypertensive disorder 89287981 I10 [id number] JORGE LONG MD [facility] [address] [place] [address] 3 05/09/2017 11:28:21 05/09/2017 12:12:34 Hypertensive disorder 15163266 I10 Overweight 213865102 E66 .3 Hyperlipidemia 24742084 E78.5 [id number] JORGE LONG MD [facility] [address] [place] [address] 3 10/02/2017 10:56:01 10/02/2017 11:32:27 Influenza-like illness 16663554 B34.9 [id number] SOURAV GARRISON PA-C [place] [address] 3 10/21/2017 10:14:26 10/21/2017 10:55:35 Acute upper respiratory infection 45998956 J06.9 [id number] SOURAV GARRISON PA-C [facility] [place] [facility] [address] [place] [address] 3 11/15/2017 13:25:59 11/15/2017 14:52:33 Acute pharyngitis 666042622 J02.9 -concernin g for strep based on PE findings [id number] JORGE LONG MD [place] [address] 3 11/22/2017 14:51:10 11/22/2017 15:42:14 Adult health examination 764219553 Z00.00 Hypertensive disorder 38 741679 I10 Overweight 513611901 E66 .3 [id number] JORGE LONG MD [place] [address] 3 11/27/2018 11:29:58 11/27/2018 12:45:42 Overweight 134231414 E66.3 Adult heal th examination 401910846 Z00.00 Hypertensive disorder 38 061124 I10 [id number] NAN WREN, [place] [address] 3 05/28/2019 09:16:27 05/28/2019 10:22:54 Body mass index 30+ - obesity 859710825 Z68.30 --Patient to start using treadmill, free weights, eating a healthy diet. Active or passive immunization 538211456 Z23 Adult heal th examination 515358573 Z00.00 Benign ess ential hypertension 1840429 I10 --Uncontro lled in office at 144/82. However patient just received text that his mom was hospitaliz ed and that causes increased stress. --Will have pt monitor outside of office, call if BP repeatedly above 140/90. --Continue lisinopril 10 mg daily. --Pt reports occasional ribcage pain. Does not sound cardiac, but discussed chest pain precaution s. Anxiety 85649417 F41.9 --Patient managing significan t life stressors fairly well considerin g how much he has going on. He doesn't believe he needs medication s/therapy at this time but will let me know if that changes. --Monitor at follow-up. [id number] NAN WREN [facility] [address] [place] [address] 09/08/2019 09:13:09 09/08/2019 09:55:56 Benign essential hypertension 9013392 I10 --Uncontro lled. --Stop lisinopril 10 mg daily. --Start lisinopril 20 mg daily. --Patient going to take 2 tabs of 10 mg. Call for 20 mg rx when close to running out. Body mass index 30+ - obesity 457949237 Z68.30 Anxiety 17986152 F41.9 --No significan t change. Patient has a lot on his mind and I think he would really benefit from counseling . He's going to consider this, but doesn't want further interventi on, including medicaiton s, at this time. Adult heal th examination 975845374 Z00.00 # Preventati Health --Tdap 2015 --Hepatiti s A: Completed 11/01 on 05/28/19 --HIV screen: Negative 05/28/19 --Flu: UTD 2018- Hyperlipidemia 53899428 E78.5 Foot pain 24853515 M79.6 71 R foot pain-like related to boots. Exam normal. Recommend trial of tennis shoes for the new few weeks. Consider imaging if symptoms persist. Pain of ri t hip joint 7008149998 62066 M25.551 --Appear to be positional , presents after long car drives. Recommend more frequent breaks when driving. Recommende d hip, glut, quad strengthen ing exercises at home. [id number] NAN WREN [facility] [address] [place] [id number] 3 09/14/2019 11:43:05 09/14/2019 12:26:37 Acute bronchitis 78882758 J20.9 DDx: Bronchitis , flu, URI with cough. Rapid flu negative in office. Febrile at 101.2. Exam unremarkab le. More likely viral etiology. Treat symptomati raciel. Monitor temp at home. Continue current OTC tx. Ibuprofen prn for discomfort /fever. Return precaution s discussed. [id number] CIARAN PAREKH MD [facility] [address] [place] [address] 3 09/24/2019 14:54:02 09/24/2019 15:50:04 Acute bronchitis 00120245 J20.9 Doxycyclin e. Mucinex DM. Stop the Linda-Seltz er and DayQuil. Push fluids. See Dr. Hardy or return if not better in 2-3 days sooner if he were to worsen or if new problems were to develop. [id number] NAN WREN DO [facility] [address] [place] [id number] 3 11/10/2019 09:07:51 11/10/2019 09:45:53 Adult health examination 777122033 Z00.00 # Preventati ve Health --Tdap 2016 --Hepatiti s A: Completed / on 05/28/19 --HIV screen: Negative 05/28/19 --Flu: UTD Benign ess ential hypertension 9538518 I10 --initiall y uncontroll ed, repeat borderline . Discussed lisinopril increase, but pt would like to do quick f/u for recheck as he's had a lot going on this week that could be contributi ng to elevation. --Continue current lisinopril 20 mg daily. --Check regularly at home and keep log. Call if repeatedly above 140/90. [id number] BRE NEELY MD [facility] [address] [place] [address] 02/18/2020 08:03:23 02/18/2020 09:41:33 Inflammatory corneal ulcer 124886450 H16.009 rec tdex q2h os rtc tomorrow pm for recheck before long weekend. [id number] WINSOME MARRERO MD [facility] [address] [place] [phone] 02/19/2020 15:12:31 02/19/2020 16:54:30 Inflammatory corneal ulcer 929988082 H16.009 improved [id number] BRE NEELY MD [facility] [address] [place] [address] 02/23/2020 15:09:49 02/23/2020 15:43:48 Marginal corneal ulcer 39406587 H16.042 inflammato ry in nature greatly improved tdex tid with taper one drop per week 1 week and prn. [id number] BRE NEELY MD [facility] [address] [place] [address] 03/04/2020 08:08:56 03/04/2020 10:26:39 Marginal keratitis 94608437 H16.8 resovled tdex qday x 1 week then d/c call with recurrence [id number] [place] [address] 07/08/2020 07:57:54 07/08/2020 09:26:31 Benign essential hypertension 1801241 I10 Nasal congestion 4048617 0 R09.81 [id number] [facility] [address] [place] [address] 08/31/2020 10:58:11 08/31/2020 11:58:24 Administration of influenza vaccine 37218312 Z23 Benign ess ential hypertension 7721770 I10 uncontroll ed-inc Lis to 40 mg. Keep checking regularly at home. Call if still elevated or any new issues. Hyperlipidemia 24979673 E78.5 Adult heal th examination 758821712 Z00.00 # Preventati Health --Tdap 2016 --Hepatiti s A: Completed / on 05/28/19 --HIV screen: Negative 05/28/19 --Flu: UTD 20-21 Pain in right hand 55380 64638 70019 M79.641 Suspect contusion, improving so will hold on ortho or MRI, low threshold for ortho referral if improvemen bill ochoa. [id number] [facility] [address] [place] [address] 12/16/2020 10:38:44 12/16/2020 11:08:53 Benign essential hypertension 8522990 I10 Uncontroll ed. Start amlodipine 5 mg daily. Continue current lisinopril . Recommende d close monitoring . Hyperlipidemia 91721053 E78.5 Adult heal th examination 941889259 Z00.00 # Preventati ve Health --Tdap 2015 --Hepatiti s A: Completed 2/2 on 05/28/19 --HIV screen: Negative 05/28/19 --Flu: UTD 20-21 Carpal sarah ana rosa syndrome 27114562 G56.03 Likely carpal tunnel-rec ommended buying carpal tunnel splints to be worn at night. If this is not helping, instructed to let me know. Will likely proceed with nerve conduction study. [id number] [place] [address] 06/16/2021 09:56:32 06/16/2021 10:27:53 Adult health examination 892294067 Z00.00 Preventati ve health measures discussed. --2015 --Hepatiti s A: Completed 2/2 on 05/28/19 --HIV screen: Negative 05/28/19 --Flu: Scheduled to be done at patient's work office.--C OVID 19 completed. Benign ess ential hypertension 8981695 I10 Controlled . Continue medication s at current dosages.La bs as ordered. Hyperlipidemia 23627070 E78.5 Recheck FLP today. Obesity 346130249 E66.9 Discussed importance of improved diet/exerc ise, weight reduction. Snoring 95171971 R06.83 Strong concern for sleep apnea. Sleep medicine referral placed. [id number] TAJ ADAIR PA-C [facility] [address] [facility], [address] [place] [address] 08/15/2021 10:47:55 08/17/2021 08:42:20 Snoring 67750212 R06.83 Patient will be scheduled for a sleep study to evaluate for PAVEL. We discussed PAVEL and CPAP in detail. We discussed the importance of weight loss and the treatment of PAVEL. I will call patient with sleep study result. [id number] TAJ ADAIR PA-C [facility] [address] [facility], [address] [place] [phone] 09/01/2021 11:04:02 09/01/2021 11:25:01 [id number] TAJ ADAIR PA-C [facility] [address] [facility], [address] [place] [phone] 10/12/2021 08:49:32 10/12/2021 09:46:26 Obstructive sleep apnea of adult 6458159686 103 G47.33 Discussed sleep study in detail. CPAP treatment is recommende d. Patient agrees to start CPAP. This will be ordered. Patient will call office to schedule follow up after obtaining CPAP. Health risks including cardiac risks of untreated PAVEL have been discussed. [id number] [address] [address] 12/22/2021 10:50:57 12/22/2021 11:17:22 Benign essential hypertension 6843966 I10 Controlled . Continue medication s at current dosages. Hyperlipidemia 43101280 E78.5 LDL 164 on 06/16/2021. Repeat at next appointmen t. Obesity 716773001 E66.9 Discussed importance of improved diet/exerc ise, weight reduction. Pt motivated to make healthy changes. Patient me dical record not available 392992036 Z76.89 Obstructiv e sleep apnea syndrome 24555731 G47.33 Pt hesitant to wear CPAP mask, discussed benefits, encouraged him to attend CPAP training as scheduled. Near syncope 410187797 R 55 Requesting records from recent ER visit. [id number] NAN [facility] [address] [place] [address] 07/27/2022 08:17:13 07/27/2022 09:02:52 Adult health examination 893109379 Z00.00 Preventati ve health measures discussed. Flu vaccinatio n in office today. COVID booster declined. Routine labs as below. Patient to follow-up with dentistry and optometry. Screening- -Colorecta l cancer screening: not indicated. --HCV screen: will complete today--HIV screen: 05/28/19--P SA: not indicated. Vaccinatio ns:--Tetan us: 10/31/15--Pr evnar: not indicated. --Pneumova x: not indicated. --Shingles : not indicated. --Hepatiti s A: completed x2--Influe nza: will complete today--COV ID-19: completed x2, declined booster Depression screening 171 519233 Z13.31 Active immunization 3387 9002 Z23 Hepatitis C screening 41 3820172 Z11.59 Has patient ever had Hep C screening? NO Benign ess ential hypertension 3140288 I10 Controlled . Continue current medication s. Recommende d home monitoring . Hyperlipidemia 94445486 E78.5 Repeat lipid panel today. Obesity 788258176 E66.9 Again discussed the importance of healthy diet, regular exercise, weight reduction. Sprain of right ankle 11 61563821 7987571 S93.401A Although unable to reproduce on exam, considerin g pain at base of fifth metatarsal , will obtain foot x-ray to rule out fracture. Lightheadedness 45931313 8 R42 Symptoms consistent with mild orthostati c hypotensio n. Recommende d he start checking blood pressure at home, and work on increasing hydration. Follow back up if symptoms persist or worsen. Obstructiv e sleep apnea syndrome 21852598 G47.33 CPAP intolerant . Recommend following back up with sleep medicine to discuss options. [id number] NAN WREN, [address] [address] 01/25/2023 08:07:01 01/25/2023 09:11:32 Cough 74241169 R05.9 Acute sinusitis 47213109 J01.90 Start course of doxycyclin e to treat. Recommende d Mucinex, Tylenol as needed. Advise good hydration, rest. Isolate until COVID test returns. Rapid flu negative in office. Return precaution s discussed. Patient fully agreeable to plan. Impacted c erumen in left ear 6800507103 407079 H61.22 Recommende d debrox OTC. [id number] BRE NEELY MD [facility] [address] [place] [address] ,[address] [place] [address] 02/11/2023 14:14:25 02/12/2023 08:45:33 Marginal keratitis 59808761 H16.8 tdex qid oucall if not improved in a few days1 week recheck [id number] NAN MARIEE RICARDO [facility] [address] [place] [address] 08/30/2023 12:59:36 08/30/2023 13:50:17 Adult health examination 053408850 Z00.00 Preventati ve health measures discussed. Flu vaccinatio n in office today. Labs as below. Screening: --Colorect al cancer screening: Colonoscop y ordered today 08/30/23.-- HCV screen: 07/27/2022 , normal--HI V screen: 05/28/2019 , normal Vaccinatio ns:--Tetan us: 10/31/2015 --Hepatiti s A: 2 of 2 completed 05/28/2019 --Influenz a: 07/27/2022 , 08/30/23.-- COVID-19: Booster declined. Screening for malignant neoplasm of colon 421811794 Z12.11 Obesity 641808999 E66.9 Encouraged dietary improvemen ts. Recommende d increasing exercise frequency as schedule allows. He is motivated to lose around 35 pounds. Benign ess ential hypertension 8180214 I10 Controlled . Continue current medication s. Continue home monitoring . Hyperlipidemia 33302628 E78.5 : LDL 176, total cholestero l 275, HDL 52, triglyceri dale 235.Repeat lipid panel today. Obstructiv e sleep apnea syndrome 46382924 G47.33 CPAP intolerant . Recommend following back up with sleep medicine to discuss options. Administra tion of influenza vaccine 90047313 Z23 History of calculus of kidney 896090828 Z87.442 Palpitations 26635056 R0 0.2 Rare, fleeting symptoms. Consider cardiology referral to discuss heart monitor if needed. Dizziness 572148628 R42 Occasional brief orthostati c symptoms. Precaution s discussed. Recommende d improving hydration. Continue close home blood pressure monitoring . Follow-up if worsening. Tinnitus of left ear 848 6489247 106 H93.12 Chronic issue-not problemati c. He does not feel ENT evaluation needed. Chronic th oracic back pain 2836314853 62632 M54.6 Stable-hairston s adjustment s through chiropract or intermitte ntly. [id number] LETTY VELAZQUEZ MD CARDIOLOG Y [address] ,[address] [place] [address] 10/04/2023 14:43:01 10/04/2023 15:40:52 Palpitations 42258896 R00.2 Obese class III 42791344 5 E66.01 [id number] [facility] [address] [place] [address] 03/02/2024 09:17:53 03/02/2024 09:34:29 Benign essential hypertension 4602108 I10 Uncontroll ed. Increase amlodipine to 10 mg daily. Recommende d home monitoring . Encouraged low-sodium diet. Hyperlipidemia 87180709 E78.5 08/30/2023: LDL 170, total 262, HDL 57, triglyceri dale 176.10-yea r ASCVD risk 3.6%.Brionna nue to monitor. Obesity 878800479 E66.9 Encouraged dietary improvemen ts, regular exercise. Discussed GLP-1 agonist for assistance with weight loss. Patient prefers to hold on this. Obstructiv e sleep apnea syndrome 35781880 G47.33 CPAP intolerant . [id number] NAN MARIEE [facility] [address] [place] [address] 06/18/2024 11:01:08 06/18/2024 11:24:18 Benign essential hypertension 8923320 I10 Stable, improved with amlodipine increase. Continue. Recommende d home monitoring .Discussed witching from lisinopril to losartan to avoid suspected cough side effect. He will consider making this change once current supply completed. Hyperlipidemia 03602452 E78.5 08/30/2023: LDL 170, total 262, HDL 57, triglyceri dale 176.10-yea r ASCVD risk 3.6%.Brionna nue to monitor. Obstructiv e sleep apnea syndrome 20567783 G47.33 CPAP intolerant . [id number] NAN WREN [facility] [address] [place] [address] 09/04/2024 11:00:19 09/04/2024 11:41:59 Adult health examination 015339188 Z00.00 Preventati ve health measures discussed. Screening: --Colorect al cancer screening: Colonoscop y ordered 08/30/23-no t completed. New order placed 09/04/24.-- HCV screen: 07/27/2022 , normal--HI V screen: 05/28/2019, normal--PS A: NA--CT lung cancer screening: non-smoker --AAA screening: non-smoker Vaccinatio ns: Pt stated today that he no longer wants to take the covid/flu vaccines-- Tetanus: 10/31/2015-- Hepatitis A: 2 of 2 completed 05/28/2019 Benign ess ential hypertension 1828935 I10 Initial blood pressure in office quite elevated at 143/104, repeat much improved to 123/86. Home readings very well-contr olled. Continue on current regimen. Continue home monitoring -call if repeated elevations .Encourage d healthy dietary habits, regular exercise. Hyperlipidemia 27168871 E78.5 08/30/2023: LDL 170, total 262, HDL 57, triglyceri dale 176.10-yea r ASCVD risk 3.6%.Brionna nue to monitor. Obstructiv e sleep apnea syndrome 17848185 G47.33 CPAP intolerant . Screening for malignant neoplasm of colon 625803079 Z12.11 Kidney stone 04499606 N2 0.0 See HPI. Patient to call ER back to get result from repeat ultrasound . [id number] SCOTT KHAN MD SURGERY SCHEDULE [address] [place] [address] 10/23/2024 10:39:42 10/23/2024 10:40:18 [id number] NAN MARIEE [address] [address] 03/19/2025 10:28:53 03/19/2025 10:48:07 Adult health examination 546305441 Z00.00 Preventati ve health measures discussed. Screening: --Colorect al cancer screening: Colonoscop y ordered 08/30/23-no t completed. New order placed 09/04/24.-- HCV screen: 07/27/2022 , normal--HI V screen: 05/28/2019, normal--PS A: NA--CT lung cancer screening: non-smoker --AAA screening: non-smoker Vaccinatio ns: Pt stated today that he no longer wants to take the covid/flu vaccines-- Tetanus: 10/31/2015-- Hepatitis A: 2 of 2 completed 05/28/2019 Benign ess ential hypertension 1549360 I10 Initial blood pressure in office quite elevated at 143/104, repeat much improved to 123/86. Home readings very well-contr olled. Continue on current regimen. Continue home monitoring -call if repeated elevations .Encourage d healthy dietary habits, regular exercise.- Continue monitoring blood pressure and managing salt intake. Hyperlipidemia 16853998 E78.5 08/30/2023: LDL 170, total 262, HDL 57, triglyceri dale 176.10-yea r ASCVD risk 3.6%.Brionna nue to monitor.- Plan to re-evaluat e cholestero l levels during the next physical examinatio n. Obstructiv e sleep apnea syndrome 08839138 G47.33 CPAP intolerant .- Discussed the importance of proper sleeping positions to alleviate joint stiffness. Kidney stone 39136982 N2 0.0 See HPI. Patient to call ER back to get result from repeat ultrasound .- No specific plan discussed during this visit. Health Concerns Section Related Observation LastModified by Organization Detai ls LastModified Time None Recorded Concern Status LastModified by Organization Details LastModified Time None Recorded Advance Directives Directive None Recorded Payers Insurance Date Sequence Insurance Name Policy Number Policy Pool Covered Member ID Pool Member ID Guarantor Name 03/16/2025 1 [place] [id number] Lazaro Chong II [id number] Lazaro Chong 06/25/2022 1 [place] [id number] Lazaro Chong II [id number] Lazaro Chong Notes Date Note Type Note Provider Name and Address Organization Details Recorded Time 03/02/2024 text/html Patient is a pleasant 43-year-old male presenting for physical.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 Pt cancelled colonoscopy due to forgetting about appt, will reschedule HTN-not checking at home. No chest pain, shortness of air, headache, vision changes. Taking medications as prescribed. Lately struggling with diet. Discussed GLP. Prefers to hold. NAN ST. RICARDO, DO 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 Doing well with this change. No edema side effect. Asymptomatic as above. Not checking blood pressure at home. Work less stressful recently-thinks that's helped BP as well. Dry cough with lisinopril-not too annoying but might consider switch to losartan after completing current supply. Plans to get back into a better routine with regards to diet and exercise. Was doing well for a while, and had lost 10 pounds. 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 Evaluated in ER-confirmed on ultrasound. Too small for intervention. Pain fully resolved. Return for repeat ultrasound, but didn't hear back on results-he will call to confirm. HTN- home readings 125-130/80. No CP, SOA, SHAFER, vision changes. Drinking more water. Trying to not eat excessively. More cognizant. Has started some exercise. Free weights. Was walking on treadmill but got out of routine. Not using CPAP-intolerant. NAN MCLAUGHLINMisty SILVA DO [address] [place] [address], [phone], [facility] 09/04/2024 13:00:19
[2025-03-21] MEDS: 0.9 % SODIUM CHLORIDE 1000ML 1,000 ML 999 ML IV (13:07)
[2025-03-21] MEDS: KETOROLAC 30MG/ML VIAL 15 MG IV (13:07)
[2025-03-21] MEDS: ONDANSETRON 4MG/2ML VIAL 4 MG IV (13:08)
[2025-03-21 13:13] LABS: Basophils # 0.1 K/mm3 (0-0.2); Basophils % 0.5 % (0.1-2.0); Eosinophils # 0.3 Kmm3 (0.0-0.4); Hematocrit 43.3 % (42.0-52.0); Hemoglobin 15.1 g/dL (14.1-18.0); Immature Granulocytes # 0.04 10^3uL; Immature Granulocytes % 0.4 %; Lymphocytes # 1.4 K/mm3 (0.7-4.5); Lymphocytes % 12.4 % (10-50); Mean Corpuscular HGB Conc 34.9 g/dL (31.8-35.4); Mean Corpuscular Hemoglobin 30.8 pg (27.0-31.2); Mean Corpuscular Volume 88.4 fl (80-94); Mean Platelet Volume 9.2 fl (7.4-10.4); Monocytes # 0.5 K/mm3 (0.1-1.0); Monocytes % 4.7 % (1.7-9.3); Nucleated Red Blood Cells # 0 10^3/uL; Nucleated Red Blood Cells % 0 %; Platelet Count 299 K/mm3 (142-424); Red Cell Distribution Width 12.3 % (11.5-17.5); Red Cell Distribution Width-SD 39.7 fL; White Blood Count 11.4 K/mm3 (4.8-10.8)
--- NOTE | 2025-03-21 13:19 | ED_ITS ---
Discharge Plan Disposition Patient Disposition: Home, Self-Care Condition: Fair Prescriptions Prescriptions: New oxycodone 5 mg tablet 5 mg PO Q8H PRN (Reason: pain) Qty: 7 0RF tamsulosin [Flomax] 0.4 mg capsule 0.4 mg PO DAILY 14 Days Qty: 14 0RF No Action azithromycin [Zithromax Z-Kurtis] 250 mg tablet See Rx Instructions PO .COMPLEX 5 Days Qty: 6 0RF Rx Instructions: For 250 mg dose pack: take 500 mg today (day 1), then 250 mg for 4 days (days 2-5) PO oseltamivir [Tamiflu] 75 mg capsule 75 mg PO DAILY Qty: 10 0RF amlodipine 5 MG tablet 5 mg PO DAILY lisinopril 40 MG tablet 40 mg PO DAILY Referrals Follow up/Referrals: Lucas Bansal MD [Staff Physician, Urology] - See instructions Provider,MD Brooke [Primary Care Provider, Medical] - See instructions Activity Restrictions/Add. Instructions Additional Instructions/Restrictions: Today you were evaluated in the emergency department and diagnosed with a kidney stone. Your CT was remarkable for a 2 mm left ureteral calculi. You should be able to pass this without surgical intervention. Please increase your fluid intake. Please take acetaminophen and ibuprofen [id number] for symptomatic relief. Follow-up with your PCP. Return to the ED for worsening of condition. Clinical Impressions Clinical Impression: Left renal stone Instructions Patient Instructions: DI for Acute Abdominal Pain Print Language Print Language: Lao Discharge ED Provider: Verena Seymour General Adult HPI <Liz Mayorga APRN - Last Filed: 03/21/25 15:47> General Chief complaint: Abdominal Pain Stated complaint: Poss. Kidney Stone. Left lower abd./back pain Time Seen by Provider: 03/21/25 12:46 Mode of Arrival: Wheelchair Source of Information: Patient and Spouse Description of Symptoms (Recalled from ER Triage Doc. by RN): pt presents to the ED with left lower abdominal and back pain that strted this morning on his way to [place]. pt states that he can't get comfortable from being in so much pain and on the way here the pain was so bad he thought he was going to pass out. pt reports he is having trouble urinating. Last time pt used the bathroom was this morning with little output and dark urine. pt hx of kidney stones. pt's spouse states she gave the pt Ibuprofen 800mg around 11:00 with no relief. History of Present Illness HPI narrative: patient is a 44-year-old male PMHx HTN, history of renal calculi who presents to the ED for complaints of left-sided flank, left abdomen, left groin pain. Patient states that started abruptly this morning. He states that he has had multiple stones in the past on the right side, however has never had kidney stones on the left side that he is aware of. He states that he has not had any medication for pain today. He denies any hematuria, however states his urine has been dark this morning. Related Data Home Medications ?Medication ?Instructions ?Recorded ?Confirmed amlodipine 5 mg tablet 5 mg PO DAILY Hypertension 0 01/29/22 02/05/22 lisinopril 40 mg tablet 40 mg PO DAILY Hypertension 01/29/22 02/05/22 Previous Rx's ?Medication ?Instructions ?Recorded azithromycin 250 mg tablet See Rx Instructions PO .COM PLEX 5 05/21/24 (Zithromax Z-Kurtis) days #6 tabs oseltamivir 75 mg capsule (Tamiflu) 75 mg PO DAILY #10 caps 10/30/24 oxycodone 5 mg tablet 5 mg PO Q8H PRN pain #7 tabs 03/21/25 tamsulosin 0.4 mg capsule (Flomax) 0.4 mg PO DAILY 14 days #14 caps 03/21/25 Allergies Allergy/AdvReac Type Severity Reaction Status Date / Time Penicillins Allergy Verified 11/08/23 15:53 [facility] <Liz Mayorga APRN - Last Filed: 03/21/25 15:47> [facility] Disclaimer: The information contained in this section may have been updated after the patient was seen, as this information can be updated by other users. Medical History (Updated 03/21/25 @ 14:45 by Liz Mayorga APRN) High blood pressure Surgical History Hx of hand surgery Family History Grandmother Cancer Grandfather Coronary artery disease Heart attack Family/Other Coronary artery disease Brother Hyperlipidemia Thyroid disorder Father Stroke Social History (Reviewed 03/21/25 @ 13:11 by KEVIN Borjas Smoking Status: Never smoker alcohol intake: never substance use type: denies use current occupational status: employed Travel in the last 8 weeks?: None household members: spouse and family housing: house Have you lived/traveled outside [place] in past 30 days?: No Contact w/someone who lives/traveled outside US past 30 days?: No Exposure to someone with infectious disease in past 14 days?: No Do you have a fever (greater than 100.4 F or 38 C)?: No Have you tested positive for COVID-19?: No Exposed to someone with COVID-19 in past 14 days?: No Do you have a sore throat?: No Do you have a cough?: No Do you have any weakness?: No Do you have any diarrhea?: No Are you experiencing any unusual bleeding?: No Do you have any muscle aches/pain?: No Do you have any abdominal pain?: Yes Are you experiencing loss of taste or smell?: No Other Medical History Have you received the Flu Vaccine for this season: Yes Have you received the Pneumonia Vaccine: No <Liz Mayorga APRN - Last Filed: 03/21/25 15:47> ROS Obtained: Yes Systems reviewed as appropriate & no additional complaints except as documented Physical Exam <Liz Mayorga APRN - Last Filed: 03/21/25 15:47> General General appearance: alert and in no apparent distress Head Head exam: atraumatic and normocephalic Eye Eye exam: Present normal appearance and PERRL ENT ENT exam: Present normal exam Neck Neck exam: Present normal inspection Chest Chest inspection: Present normal inspection and symmetric chest wall rise; Absent tenderness Respiratory Respiratory exam: Present normal lung sounds bilaterally Cardiovascular Cardiovascular exam: Present regular rate Abdominal Exam Abdominal exam: Present soft and tenderness (LLQ) Extremities Exam Extremities exam: Present normal inspection and full ROM Back Exam Back exam: Present normal inspection, full ROM and CVA tenderness (L) Neurological Exam Neurological exam: Present alert and oriented X3 Psychiatric Psychiatric exam: Present normal affect and normal mood Skin Skin exam: Present warm and dry Medical Decision Making <Liz Mayorga APRN - Last Filed: 03/21/25 15:47> Medical Records Screening: Per USPSTF and CDC recommendations, given the prevalence of disease in our region, it is our hospital?s policy to screen for HIV and viral Hepatitis for all patients aged 18 and over and those with ongoing risk factors. Darius Inquiry Pt receiving controlled substance: No Vital Signs: 03/21/25 12:52 03/21/25 12:54 03/21/25 13:07 Temperature 97.8 F 97.8 F Temperature Source Oral Oral Pulse Rate 62 69 Pulse Rate [Left] 69 Respiratory Rate 18 17 17 Blood Pressure 123/83 123/83 Blood Pressure [Left Arm] 123/83 Blood Pressure Mean 90 Blood Pressure Mean [Left Arm] 96 Blood Pressure Source Automatic Cuff Blood Pressure Source [Left Arm] Automatic Cuff Blood Pressure Position Supine Blood Pressure Position [Left Arm] Supine 02 Sat by Pulse Oximetry 94 L 94 L 94 L Oxygen Delivery Method Room Air Room Air 03/21/25 13:51 03/21/25 14:03 03/21/25 14:30 Temperature Temperature Source Pulse Rate 73 71 66 Pulse Rate [Left] Respiratory Rate 18 Blood Pressure 128/73 125/67 113/70 Blood Pressure [Left Arm] Blood Pressure Mean 87 Blood Pressure Mean [Left Arm] Blood Pressure Source Blood Pressure Source [Left Arm] Blood Pressure Position Blood Pressure Position [Left Arm] 02 Sat by Pulse Oximetry 96 96 96 Oxygen Delivery Method 03/21/25 15:04 Temperature 97.8 F Temperature Source Pulse Rate 66 Pulse Rate [Left] Respiratory Rate 17 Blood Pressure 113/70 Blood Pressure [Left Arm] Blood Pressure Mean Blood Pressure Mean [Left Arm] Blood Pressure Source Blood Pressure Source [Left Arm] Blood Pressure Position Blood Pressure Position [Left Arm] 02 Sat by Pulse Oximetry Oxygen Delivery Method Lab Data Lab Results 03/21/25 13:01: WBC 11.4 H, RBC 4.90, Hgb 15.1, Hct 43.3, MCV 88.4, MCH 30.8, MCHC 34.9, RDW 12.3, Plt Count 299, MPV 9.2, Neut % (Auto) 79.0, Lymph % (Auto) 12.4, [place] % (Auto) 4.7, Eos % (Auto) 3.0, Baso % (Auto) 0.5, Neut # (Auto) 9.0 H, Lymph # (Auto) 1.4, [place] # (Auto) 0.5, Eos # (Auto) 0.3, Baso # (Auto) 0.1, Sodium 136, Potassium 4.3, Chloride 101, Carbon Dioxide 24, Anion Gap 15.3 H, BUN 14, Creatinine 0.90, Estimated Creat Clear 184, Estimated GFR 91, Est GFR ( Amer) 110, Glucose 138 H, Calcium 8.7, Total Bilirubin 0.7, AST 31, ALT 28, Alkaline Phosphatase 137 H, Total Protein 7.3, Albumin 4.3, Globulin 3.0, Albumin/Globulin Ratio 1.4, HCV Ab FLORIDALMA w/Rflx PCR Qn Negative, HIV Ag/Ab Combo Qual Negative 03/21/25 14:03: Urine Color Yellow, Urine Appearance Clear, Urine pH 6.5, Ur Specific [place] 1.025, Urine Protein Negative, Urine Glucose (UA) Negative, Urine Ketones Trace, Urine Blood 3+ A, Urine Nitrate Negative, Urine Bilirubin Negative, Urine Urobilinogen 0.2, Ur Leukocyte Esterase Negative, Urine RBC Tntc, Urine WBC 3-5, Ur Squamous Epith Cells 3-5, Urine Bacteria 3+, Urine Mucus 4+ 03/21/25 13:01 03/21/25 13:01 Orders (Tests/Meds): ED MEDICATIONS Discontinued Medications Generic Name Dose Route Start Last Admin Trade Name Freq PRN Reason Stop Dose Admin Hydromorphone HCl 1 mg 03/21/25 13:20 03/21/25 13:26 Hydromorphone 2mg/Ml Syringe IV 03/21/25 13:21 1 mg ONCE ONE Administration Sodium Chloride 1,000 mls @ 999 mls/hr 03/21/25 12:49 03/21/25 13:07 Sod Chlor 0.9% 1000ml Bag IV 03/21/25 13:49 999 mls/hr .Q1H1M ONE Administration Ketorolac Tromethamine 15 mg 03/21/25 12:49 03/21/25 13:07 Ketorolac 30mg/Ml Vial IV 03/21/25 12:50 15 mg ONCE ONE Administration Ondansetron HCl 4 mg 03/21/25 12:49 03/21/25 13:08 Ondansetron 4mg/2ml Vial IV 03/21/25 12:50 4 mg ONCE ONE Administration Oxycodone HCl 10 mg 03/21/25 15:00 03/21/25 14:57 Oxycodone 5mg Immediate Release Tablet PO 03/21/25 15:01 10 mg ONCE ONE Administration ORDERS Category Date Time Status CT abdomen pelvis wo con Stat Cat Scan 03/21/25 12:49 Completed CBC w/Auto Diff [Complete Blood Count Auto Diff] Stat Lab 03/21/25 13:01 Completed CMP [Comprehensive Metabolic Panel] Stat Lab 03/21/25 13:01 Completed HIV Combo Stat Lab 03/21/25 13:01 Completed Hepatitis C Ab Qual. W/ RFX Stat Lab 03/21/25 13:01 Completed Urinalysis and Microscopic Stat Lab 03/21/25 14:03 Completed Urine Culture Stat Micro 03/21/25 14:03 Received Medical Decision Narrative: In summary, patient is a 44-year-old male PMHx HTN, history of renal calculi who presents to the ED for complaints of left-sided flank, left abdomen, left groin pain. Patient states that started abruptly this morning. He states that he has had multiple stones in the past on the right side, however has never had kidney stones on the left side that he is aware of. He states that he has not had any medication for pain today. He denies any hematuria, however states his urine has been dark this morning. Denies fever, chills, body aches, headache, chest pain, shortness of breath. Upon initial evaluation patient is alert and oriented. He is laying facedown on the stretcher, states he is unable to get comfortable. He has tenderness at the left flank area, left lower quadrant of the abdomen. Differential diagnosis include pyelonephritis, UTI, renal calculi, obstructing stone, sepsis, among others. Discussed with patient we will symptomatically manage with IV fluids, Toradol and Zofran. CT scan without contrast will be obtained. Upon reassessment, patient states the Toradol did not help with this pain, subsequently Dilaudid was ordered. Labs reviewed, CBC WBC 11.4, stable H&H. CMP unremarkable for any actionable abnormalities. Final read of the CT remarkable for a left 2 mm distal ureteral calculus causing mild dilation of the left collecting system. Patient is able to tolerate PO and pain has significantly improved in ED. Given this, I feel the patient is safe to be discharged home at this time. I Discussed with patient that he should be able to pass the stone on his own. We discussed the prescription for narcotics and Flomax at the pharmacy. Advised him to increase his fluid intake. Patient is not currently established with a urologist so I placed Dr. Bansal on the discharge papers. We discussed return precautions to the ED and patient and spouse verbalized understanding. He was given oxycodone prior to leaving the ED for pain control. <Verena Seymour MD - Last Filed: 03/21/25 15:40> Vital Signs: 03/21/25 12:52 03/21/25 12:54 03/21/25 13:07 Temperature 97.8 F 97.8 F Temperature Source Oral Oral Pulse Rate 62 69 Pulse Rate [Left] 69 Respiratory Rate 18 17 17 Blood Pressure 123/83 123/83 Blood Pressure [Left Arm] 123/83 Blood Pressure Mean 90 Blood Pressure Mean [Left Arm] 96 Blood Pressure Source Automatic Cuff Blood Pressure Source [Left Arm] Automatic Cuff Blood Pressure Position Supine Blood Pressure Position [Left Arm] Supine 02 Sat by Pulse Oximetry 94 L 94 L 94 L Oxygen Delivery Method Room Air Room Air 03/21/25 13:51 03/21/25 14:03 03/21/25 14:30 Temperature Temperature Source Pulse Rate 73 71 66 Pulse Rate [Left] Respiratory Rate 18 Blood Pressure 128/73 125/67 113/70 Blood Pressure [Left Arm] Blood Pressure Mean 87 Blood Pressure Mean [Left Arm] Blood Pressure Source Blood Pressure Source [Left Arm] Blood Pressure Position Blood Pressure Position [Left Arm] 02 Sat by Pulse Oximetry 96 96 96 Oxygen Delivery Method 03/21/25 15:04 Temperature 97.8 F Temperature Source Pulse Rate 66 Pulse Rate [Left] Respiratory Rate 17 Blood Pressure 113/70 Blood Pressure [Left Arm] Blood Pressure Mean Blood Pressure Mean [Left Arm] Blood Pressure Source Blood Pressure Source [Left Arm] Blood Pressure Position Blood Pressure Position [Left Arm] 02 Sat by Pulse Oximetry Oxygen Delivery Method Lab Data Lab Results 03/21/25 13:01: WBC 11.4 H, RBC 4.90, Hgb 15.1, Hct 43.3, MCV 88.4, MCH 30.8, MCHC 34.9, RDW 12.3, Plt Count 299, MPV 9.2, Neut % (Auto) 79.0, Lymph % (Auto) 12.4, [place] % (Auto) 4.7, Eos % (Auto) 3.0, Baso % (Auto) 0.5, Neut # (Auto) 9.0 H, Lymph # (Auto) 1.4, [place] # (Auto) 0.5, Eos # (Auto) 0.3, Baso # (Auto) 0.1, Sodium 136, Potassium 4.3, Chloride 101, Carbon Dioxide 24, Anion Gap 15.3 H, BUN 14, Creatinine 0.90, Estimated Creat Clear 184, Estimated GFR 91, Est GFR ( Amer) 110, Glucose 138 H, Calcium 8.7, Total Bilirubin 0.7, AST 31, ALT 28, Alkaline Phosphatase 137 H, Total Protein 7.3, Albumin 4.3, Globulin 3.0, Albumin/Globulin Ratio 1.4, HCV Ab FLORIDALMA w/Rflx PCR Qn Negative, HIV Ag/Ab Combo Qual Negative 03/21/25 14:03: Urine Color Yellow, Urine Appearance Clear, Urine pH 6.5, Ur Specific [place] 1.025, Urine Protein Negative, Urine Glucose (UA) Negative, Urine Ketones Trace, Urine Blood 3+ A, Urine Nitrate Negative, Urine Bilirubin Negative, Urine Urobilinogen 0.2, Ur Leukocyte Esterase Negative, Urine RBC Tntc, Urine WBC 3-5, Ur Squamous Epith Cells 3-5, Urine Bacteria 3+, Urine Mucus 4+ Orders (Tests/Meds): ED MEDICATIONS Discontinued Medications Generic Name Dose Route Start Last Admin Trade Name Marya PRN Reason Stop Dose Admin Hydromorphone HCl 1 mg 03/21/25 13:20 03/21/25 13:26 Hydromorphone 2mg/Ml Syringe IV 03/21/25 13:21 1 mg ONCE ONE Administration Sodium Chloride 1,000 mls @ 999 mls/hr 03/21/25 12:49 03/21/25 13:07 Sod Chlor 0.9% 1000ml Bag IV 03/21/25 13:49 999 mls/hr .Q1H1M ONE Administration Ketorolac Tromethamine 15 mg 03/21/25 12:49 03/21/25 13:07 Ketorolac 30mg/Ml Vial IV 03/21/25 12:50 15 mg ONCE ONE Administration Ondansetron HCl 4 mg 03/21/25 12:49 03/21/25 13:08 Ondansetron 4mg/2ml Vial IV 03/21/25 12:50 4 mg ONCE ONE Administration Oxycodone HCl 10 mg 03/21/25 15:00 03/21/25 14:57 Oxycodone 5mg Immediate Release Tablet PO 03/21/25 15:01 10 mg ONCE ONE Administration ORDERS Category Date Time Status CT abdomen pelvis wo con Stat Cat Scan 03/21/25 12:49 Completed CBC w/Auto Diff [Complete Blood Count Auto Diff] Stat Lab 03/21/25 13:01 Completed CMP [Comprehensive Metabolic Panel] Stat Lab 03/21/25 13:01 Completed HIV Combo Stat Lab 03/21/25 13:01 Completed Hepatitis C Ab Qual. W/ RFX Stat Lab 03/21/25 13:01 Completed Urinalysis and Microscopic Stat Lab 03/21/25 14:03 Completed Urine Culture Stat Micro 03/21/25 14:03 Received Medical Decision Narrative: In summary, patient is a 44-year-old male PMHx HTN, history of renal calculi who presents to the ED for complaints of left-sided flank, left abdomen, left groin pain. Patient states that started abruptly this morning. He states that he has had multiple stones in the past on the right side, however has never had kidney stones on the left side that he is aware of. He states that he has not had any medication for pain today. He denies any hematuria, however states his urine has been dark this morning. Denies fever, chills, body aches, headache, chest pain, shortness of breath. Upon initial evaluation patient is alert and oriented. He is laying facedown on the stretcher, states he is unable to get comfortable. He has tenderness at the left flank area, left lower quadrant of the abdomen. Differential diagnosis include pyelonephritis, UTI, renal calculi, obstructing stone, sepsis, among others. Discussed with patient we will symptomatically manage with IV fluids, Toradol and Zofran. CT scan without contrast will be obtained. Upon reassessment, patient states the Toradol did not help with this pain, subsequently Dilaudid was ordered. Labs reviewed, CBC WBC 11.4, stable H&H. CMP unremarkable for any actionable abnormalities. Final read of the CT remarkable for a left 2 mm distal ureteral calculus causing mild dilation of the left collecting system. I was consulted by the MARCY, and we discussed the complexity of problems being addressed. I approved the treatment and management plan for this patient's care in the emergency department, thus performing a substantial portion of the medical decision making. Verena Seymour MD Critical Care <Liz Mayorga APRN - Last Filed: 03/21/25 15:47> Critical Care Time Critical Care Time: No <Verena Seymour MD - Last Filed: 03/21/25 15:40> Critical Care Time Critical Care Time: No
[2025-03-21 13:20] LABS: Albumin Level 4.3 g/dl (3.5-5.0); Chloride 101 mmol/L (98-107); Potassium 4.3 mmoL/L (3.5-5.1); Sodium 136 mmol/L (136-145)
[2025-03-21 13:23] LABS: Alanine Aminotransferase 28 U/L (12-78); Albumin/Globulin Ratio 1.4 (1.1-1.8); Alkaline Phosphatase 137 U/L (38-126); Anion Gap 15.3 mEq/L (5-15); Aspartate Amino Transferase 31 U/L (17-59); Bilirubin,Total 0.7 mg/dl (0.2-1.3); Blood Urea Nitrogen 14 mg/dl (9-20); Carbon Dioxide 24 mmol/L (22.0-30.0); Creatinine Clearance Estimated 184 mL/min (50-200); Estimated Glomerular Filt Rate 91 ml/min (>60); GFR (African American) 110 ML/MIN (>60); Total Protein,Serum 7.3 g/dl (6.3-8.2)
[2025-03-21 13:24] LABS: Calcium 8.7 mg/dl (8.4-10.2); Glucose 138 mg/dl (74-100)
[2025-03-21] MEDS: HYDROMORPHONE 2MG/ML SYRINGE 1 MG IV (13:26)
[2025-03-21 14:05] LABS: HIV Combo NEGATIVE (Negative)
[2025-03-21 14:09] LABS: Microscopic, Urine URINE MICROSCOPIC (MICROSCOPIC)
[2025-03-21 14:12] LABS: Hepatitis C Ab Qual. W/ RFX NEGATIVE (Negative)
[2025-03-21 14:16] LABS: Appearance,Urine CLEAR (Clear); Bilirubin,Urine Negative (Negative); Blood, Urine 3+ (Negative); Color,Urine YELLOW (Yellow); Glucose,Urine (UA) Negative (Negative); Ketones,Urine TRACE (Negative); Leukocyte Esterase,Urine Negative (Negative); Nitrate,Urine Negative (Negative); PH,Urine 6.5 (5.0-8.5); Protein,Urine Negative (Negative); Specific Gravity, Urine 1.025 (1.005-1.030); Urobilinogen,Urine 0.2 EU/dl (0.2)
[2025-03-21 14:34] LABS: Bacteria,Urine 3+ /lpf; Mucus,Urine 4+ /lpf; RBC,Urine TNTC #/hpf (0-3)
[2025-03-21] MEDS: OXYCODONE 5MG IMMEDIATE RELEASE TABLET 10 MG PO (14:57)
== END 2025-03-21 15:05 | disposition home or self-care (01) ==
PROVIDERS: Nurse Practitioner; Emergency Provider Student in an Organized Health Care Education/Training Program
DX: N20.1 Calculus of ureter (principal); R10.32 Left lower quadrant pain; M54.59 Other low back pain
CPT/HCPCS: 74176; 80053; 81001; 85025; 86803; 87086; 87389; 96361; 96374; 96375; 99285; J1171; J1885; J2405; J7030